=== PATIENT | male | born 1960 | race Caucasian/White ===

== ENCOUNTER 2022-01-17 08:44 | Emergency (ER) | payer OTHER ==
[2022-01-17 08:57] VITALS: TEMP 98.2; BMI 26.9
[2022-01-17 10:23] VITALS: BP 155/80; RESP 17
[2022-01-17 10:29] VITALS: PULSE 85
== END 2022-01-17 10:54 | disposition home or self-care (01) ==
LOC: JER 08:44
DX: S09.90XA Unspecified injury of head, initial encounter (principal); W19.XXXA Unspecified fall, initial encounter
CPT/HCPCS: 70450-TC; 72125-TC; 82962; 93005; 93010; 99285-25

== ENCOUNTER 2022-12-20 05:58 | Emergency (ER) | payer OTHER ==
[2022-12-20 06:23] VITALS: BP 162/78; PULSE 77; RESP 16; TEMP 98; BMI 27.4
[2022-12-20 08:39] LABS: BASO % 0.2 % (0-2.0); EOS % 0.8 % (0-4.5); HEMATOCRIT 44.2 % (35.4-49); HEMOGLOBIN 15.2 GM/dL (11.7-16.9); LYMPH % 22.9 % (8-40); MCH 29.4 pg (25.7-33.7); MCHC 34.3 g/dl (32.0-35.9); MEAN CELL VOLUME 85.5 fl (80-96); MEAN PLT VOLUME 9.6 fl (7.5-11.1); MONO % 8.8 % (3.8-10.2); NEUT % 67.3 % (42.8-82.8); PLATELET COUNT 211 10^3/uL (134-434); RBC 5.17 M/mm3 (4.00-5.60); RDW 14.1 % (11.9-15.9)
[2022-12-20 08:45] LABS: POTASSIUM 4.8 mmol/L (3.5-5.1)
[2022-12-20 08:46] LABS: CALCIUM 9.7 mg/dL (8.5-10.1)
[2022-12-20 08:47] LABS: ALBUMIN 3.9 g/dl (3.4-5.0); BLOOD UREA NITROGEN 17.9 mg/dL (7-18)
[2022-12-20 08:50] LABS: CREATININE 0.9 mg/dL (0.55-1.3)
[2022-12-20 08:52] LABS: BILIRUBIN,TOTAL 0.4 mg/dL (0.2-1); TOT PROT 7.2 g/dl (6.4-8.2)
== END 2022-12-20 09:44 | disposition home or self-care (01) ==
LOC: JER 05:58
DX: R20.8 Other disturbances of skin sensation (principal); Z20.822 Contact with and (suspected) exposure to COVID-19
CPT/HCPCS: 0241U-QW; 36415; 80053; 85025; 99283-25

== ENCOUNTER 2023-09-21 17:24 | Observation (INO) | payer OTHER ==
[2023-09-21 19:14] LABS: BASO % 0.2 % (0-2.0); EOS % 0.2 % (0-4.5); HEMATOCRIT 47.5 % (35.4-49); LYMPH % 17.5 % (8-40); MCH 29.3 pg (25.7-33.7); MCHC 33.7 g/dl (32.0-35.9); MEAN CELL VOLUME 86.9 fl (80-96); MEAN PLT VOLUME 9.9 fl (7.5-11.1); MONO % 7.3 % (3.8-10.2); NEUT % 74.8 % (42.8-82.8); PLATELET COUNT 258 10^3/uL (134-434); RBC 5.47 M/mm3 (4.00-5.60); RDW 14.2 % (11.9-15.9); WHITE BLOOD COUNT 11.3 K/mm3 (4.0-10.0)
[2023-09-21 19:22] LABS: INR 1.22 (0.83-1.09); PROTHROMBIN TIME (PATIENT) 14.1 SEC (9.7-13.0)
[2023-09-21 19:25] LABS: ACTIVATED PTT 28.3 SECONDS (25.2-36.5)
[2023-09-21 19:32] LABS: POTASSIUM 5.3 mmol/L (3.5-5.1)
[2023-09-21 19:33] LABS: CALCIUM 9.3 mg/dL (8.5-10.1)
[2023-09-21 19:34] LABS: ALBUMIN 3.7 g/dl (3.4-5.0); BLOOD UREA NITROGEN 14.5 mg/dL (7-18); MAGNESIUM 2.3 mg/dL (1.8-2.4)
[2023-09-21 19:37] LABS: PHOSPHOROUS 3.2 mg/dL (2.5-4.9)
[2023-09-21 19:39] LABS: BILIRUBIN,TOTAL 0.4 mg/dL (0.2-1); TOT PROT 7.3 g/dl (6.4-8.2)
[2023-09-21 20:33] LABS: EPI CELLS 5 /uL (0-25.1); HYALINE CASTS 1 /uL (0-3.1); PH,URINE 5.5 (5.0-8.0); URINE APPEARANCE CLEAR; URINE BACTERIA 2 /uL (0-1359); URINE BILIRUBIN NEGATIVE (NEGATIVE); URINE COLOR YELLOW; URINE GLUCOSE (UA) NEGATIVE (NEGATIVE); URINE KETONE 1+ (NEGATIVE); URINE LEUK ESTERASE NEGATIVE (NEGATIVE); URINE NITRITE NEGATIVE (NEGATIVE); URINE PROTEIN TRACE (NEGATIVE); URINE RBC 57 /uL (0-23.9); URINE UROBILINOGEN 0.2 mg/dL (0.2-1.0); URINE WBC 11 /uL (0-25.8)
[2023-09-22 01:11] VITALS: BMI 25.4
[2023-09-22 08:28] LABS: BASO % 0.2 % (0-2.0); EOS % 0.5 % (0-4.5); HEMATOCRIT 45.1 % (35.4-49); HEMOGLOBIN 15.1 GM/dL (11.7-16.9); LYMPH % 16.1 % (8-40); MCHC 33.4 g/dl (32.0-35.9); MEAN PLT VOLUME 9.6 fl (7.5-11.1); MONO % 8.3 % (3.8-10.2); NEUT % 74.9 % (42.8-82.8); PLATELET COUNT 246 10^3/uL (134-434); RBC 5.19 M/mm3 (4.00-5.60); RDW 14.2 % (11.9-15.9); WHITE BLOOD COUNT 8.6 K/mm3 (4.0-10.0)
[2023-09-22 08:54] LABS: POTASSIUM 4.3 mmol/L (3.5-5.1)
[2023-09-22 09:09] LABS: BLOOD UREA NITROGEN 13.4 mg/dL (7-18)
[2023-09-22 09:10] LABS: CALCIUM 9.3 mg/dL (8.5-10.1)
[2023-09-22 09:12] LABS: CREATININE 0.8 mg/dL (0.55-1.3)
[2023-09-22] MEDS: levETIRAcetam 500 MG TABLET (FP) PO SCH (10:15)
[2023-09-22] MEDS: lamoTRIgine 25 MG TABLET PO SCH (10:15)
[2023-09-22] MEDS: SERTRALINE HCL 50 MG TABLET (FP) PO SCH (10:15)
[2023-09-22] MEDS: LOSARTAN POTASSIUM 50 MG TABLET PO SCH (10:15)
[2023-09-22] MEDS: CYANOCOBALAMIN (VITAMIN B-12) 1000 MCG/1 ML VIAL IM SCH (18:24)
[2023-09-22] MEDS: ATORVASTATIN CA 10 MG TABLET (FP) PO SCH (21:16)
[2023-09-23 14:26] VITALS: RESP 18
[2023-09-23] MEDS ORDERED: levETIRAcetam 500 MG TABLET (FP) PO SCH (14:41)
[2023-09-23] MEDS: lamoTRIgine 25 MG TABLET PO SCH (21:02)
[2023-09-24 08:53] LABS: HEMATOCRIT 46.2 % (35.4-49); HEMOGLOBIN 15.7 GM/dL (11.7-16.9); MCH 29.4 pg (25.7-33.7); MCHC 33.9 g/dl (32.0-35.9); MEAN CELL VOLUME 86.5 fl (80-96); MEAN PLT VOLUME 10.5 fl (7.5-11.1); PLATELET COUNT 191 10^3/uL (134-434); RBC 5.35 M/mm3 (4.00-5.60); WHITE BLOOD COUNT 9.5 K/mm3 (4.0-10.0)
[2023-09-24 09:05] LABS: POTASSIUM 4.4 mmol/L (3.5-5.1)
[2023-09-24 09:34] LABS: ALBUMIN 3.2 g/dl (3.4-5.0); CALCIUM 9.2 mg/dL (8.5-10.1)
[2023-09-24 09:35] LABS: BLOOD UREA NITROGEN 16.6 mg/dL (7-18)
[2023-09-24 09:38] LABS: CREATININE 0.8 mg/dL (0.55-1.3)
[2023-09-24 09:39] LABS: BILIRUBIN,TOTAL 0.8 mg/dL (0.2-1); TOT PROT 6.6 g/dl (6.4-8.2)
[2023-09-25 14:46] VITALS: BP 110/57; PULSE 58; TEMP 98.2
== END 2023-09-25 17:01 | disposition home or self-care (01) ==
LOC: JER 17:24 → JERBED 21:45 → J5S 09-22 00:06
PROVIDERS: ADMIT Internal Medicine; ATTEND Family Medicine
PROC: 3E023GC Introduction of Other Therapeutic Substance into Muscle, Percutaneous Approach (ICD-10-PCS; principal; 2023-09-21)
DX: G93.41 Metabolic encephalopathy (principal); G40.909 Epilepsy, unspecified, not intractable, without status epilepticus; I10 Essential (primary) hypertension; E78.5 Hyperlipidemia, unspecified; E53.8 Deficiency of other specified B group vitamins; Z98.890 Other specified postprocedural states
CPT/HCPCS: 0241U-QW; 36415; 70450-TC; 70551-TC; 71045-TC-FY; 71046-TC-FY; 80048; 80053; 80177; 81003; 82140; 82607; 83605; 83735; 84100; 84443; 84484; 85025; 85027; 85610; 85730; 86618; 86780; 87040; 87086; 93005; 93010; 96372; 99285-25; G0378

== ENCOUNTER 2024-01-17 04:29 | Day surgery (SDC) | payer OTHER ==
[2024-01-16 10:59] VITALS: BMI 27.4
[2024-01-17 10:02] VITALS: TEMP 98.1
[2024-01-17 10:13] VITALS: RESP 18
[2024-01-17 10:54] VITALS: BP 122/70; PULSE 65
== END 2024-01-17 10:54 | disposition home or self-care (01) ==
LOC: JASU-ENDO 04:29
PROVIDERS: ATTEND Internal Medicine Gastroenterology
PROC: 0DBH8ZX Excision of Cecum, Via Natural or Artificial Opening Endoscopic, Diagnostic (ICD-10-PCS; principal; 2024-01-17 10:00)
DX: Z12.11 Encounter for screening for malignant neoplasm of colon (principal); D12.0 Benign neoplasm of cecum; K64.8 Other hemorrhoids
CPT/HCPCS: 88305-TC